=== PATIENT | female | born 1995 | race Caucasian/White ===

== ENCOUNTER 2018-12-23 17:14 | Emergency (ER) | payer SELFPAY ==
[2018-12-23] MEDS ORDERED: DIPH/PERTUSS(ACELL)/TETANUS VAC/PF 0.5 ML SYR (>=10YO) IM ONE (17:50)
[2018-12-23] MEDS ORDERED: AMOXICILLIN TR/POT CLAVULANATE 500-125 MG TAB PO ONE (17:50)
[2018-12-23] MEDS ORDERED: CEFEPIME 1 GM/D5W RTU 1 GM/50 ML RTUPB IV ONE (17:53)
--- NOTE | 2018-12-23 17:55 | ER Document Report ---
ED Medical Screen (RME) - General Chief Complaint: Dog Bite Stated Complaint: DOG BITE/LEFT PINKY FINGER Time Seen by Provider: 12/23/18 17:44 - HPI Notes: 12/23/18 17:53 Patient is a 23-year-old female no significant past medical history who presents complaining of dog bite with partial amputation of the left distal fifth finger prior to arrival. Patient states that she was trying to break up a fight between her 2 pit mix dogs when she was bit. Patient states that the shots are up-to-date for her animals, but she is unaware of her last tetanus. She still able to move her finger. She did bring the piece of the finger with her in a bag. Denies HOBBS, fever, neck pain, URI, CP, SOB, Abd pain, dysuria, back pain, or rash. I have treated and performed a rapid initial assessment of this patient. A comprehensive ED assessment and evaluation of the patient, analysis of test results and completion of medical decision making process will be conducted by additional ED providers. PHYSICAL EXAMINATION: GENERAL: Well-appearing, well-nourished and in no acute distress. A&Ox4. Answers questions appropriately. LUNGS: Breath sounds clear to auscultation bilaterally and equal. No wheezes rales or rhonchi. HEART: Regular rate and rhythm without murmurs, rubs, gallops. Left hand: + partial amputation noted to distal 5th finger. FROM. Strength 5+/5. ? piece of bone in the amputated piece that is in a bag. - Related Data Allergies/Adverse Reactions: No Known Allergies Allergy (Unverified 12/23/18 17:19) Past Medical History - Social History Frequency of alcohol use: Occasional Drug Abuse: None Renal/ Medical History: Denies: Hx Peritoneal Dialysis Physical Exam - Vital signs Vitals: Temp Pulse Resp BP Pulse Ox 97.3 F 93 20 114/62 93 12/23/18 17:25 12/23/18 17:25 12/23/18 17:25 12/23/18 17:25 12/23/18 17:25 Course - Vital Signs Vital signs: Temp Pulse Resp BP Pulse Ox 97.3 F 93 20 114/62 93 12/23/18 17:25 12/23/18 17:25 12/23/18 17:25 12/23/18 17:25 12/23/18 17:25
--- NOTE | 2018-12-23 18:19 | RADIOLOGY REPORT (SQ) ---
EXAM DESCRIPTION: HAND LEFT 3 VIEWS COMPLETED DATE/TIME: 12/23/2018 6:09 pm REASON FOR STUDY: left dog bite with amputation 5th digit distal COMPARISON: None. EXAM PARAMETERS: NUMBER OF VIEWS: Three views. TECHNIQUE: AP, lateral and oblique radiographic images acquired of the left hand. LIMITATIONS: None. FINDINGS: MINERALIZATION: Normal. BONES: 5th digit distal phalanx tuft avulsion fracture. No other fracture or dislocation. No worris ome bone lesions. JOINTS: No effusion. SOFT TISSUES: No radiopaque foreign body. OTHER: No other significant finding. IMPRESSION: 5th digit distal phalanx tuft avulsion fracture. TECHNICAL DOCUMENTATION: JOB ID: [id number] [place]-72 2010 [employer]- All Rights Reserved Reading location - IP/workstation name: [email or web address]
[2018-12-23] MEDS ORDERED: HYDROMORPHONE HCL INJ/PF 2 MG/ML AMPULE IV ONE (22:29)
[2018-12-23] MEDS ORDERED: HYDROCODONE/ACETAMINOPHEN 5-325 MG (6 TAB/ER DISP) PO PRN (23:29)
--- NOTE | 2018-12-23 23:44 | ER Document Report ---
ED General - General Chief Complaint: Dog Bite Stated Complaint: DOG BITE/LEFT PINKY FINGER Time Seen by Provider: 12/23/18 17:44 Primary Care Provider: RITO DIAMOND MD [ACTIVE PROVISIONAL STAFF] - 12/27/18 Notes: Patient is a pleasant 23-year-old female presents with complaint of dog bite to her left pinky finger. She says her dogs got a fight and the dog grabbed onto her left pinky finger and bit off the tip of her finger. Patient denies any other bites other than a small bite to her left forearm. She did receive a tetanus shot in triage. She also received antibiotics in triage. She has no other complaints at this time. TRAVEL OUTSIDE OF THE [place] IN LAST 30 DAYS: No - Related Data Allergies/Adverse Reactions: No Known Allergies Allergy (Unverified 12/23/18 17:19) Past Medical History - Social History Smoking Status: Current Every Day Smoker Frequency of alcohol use: Occasional Drug Abuse: None Family History: Reviewed & Not Pertinent Patient has suicidal ideation: No Patient has homicidal ideation: No Renal/ Medical History: Denies: Hx Peritoneal Dialysis Review of Systems - Review of Systems Notes: My Normal Review Basic REVIEW OF SYSTEMS: CONSTITUTIONAL : Denies fever, chills, or sweats. Denies recent illness. MUSCULOSKELETAL: Patient has dog bite to the tip of the left fifth digit. SKIN: Denies rash or skin lesions. NEUROLOGICAL: Denies sensory or motor loss. ALL OTHER SYSTEMS REVIEWED AND NEGATIVE. Physical Exam - Vital signs Vitals: Temp Pulse Resp BP Pulse Ox 97.3 F 93 20 114/62 93 12/23/18 17:25 12/23/18 17:25 12/23/18 17:25 12/23/18 17:25 12/23/18 17:25 - Notes Notes: General Appearance: Well nourished, alert, cooperative, no acute distress, moderate obvious discomfort. Vitals: reviewed, See vital signs table Eyes: PERRL, EOMI, Conjuctiva clear Extremities: strength 5/5 in all extremities, good pulses in all extremities, on exam patient is missing from approximately at the inferior portion of the nailbed forward. There is no nail. The entire distal portion of the finger is gone. Patient has just a small piece of the tuft of the distal phalanx visible and is surrounded by the soft tissue of the finger. No active bleeding at this time. Patient does have 2 small puncture wounds on the left forearm. No surrounding swelling or erythema. No active bleeding. No foreign body seen. Skin: warm, dry, appropriate color, no rash Neuro: speech clear, oriented x 3, normal affect, responds appropriately to questions. Course - Re-evaluation Re-evalutation: 12/24/18 07:07 I did thoroughly irrigate and clean the finger. I then placed a nonstick gauze and dressing on the finger. I did speak with Dr. Diamond, orthopedist. He recommends dressing changes but she can leave it to open air at home as long as she does not do anything dirty or is around a dirty environment. Recommend frequent washing with soap and water of the finger. He says to have the patient call his office and will see her in office this coming week for further evaluation. I will place patient on Augmentin. Patient is agreeable plan. I encouraged her return to ER immediately if she has spreading redness or swelling to the hand or forearm, fevers, bleeding, or if she has any further concerns. Patient agrees with plan and will be discharged home. Dictation of this chart was performed using voice recognition software; therefore, there may be some unintended grammatical errors. - Vital Signs Vital signs: Temp Pulse Resp BP Pulse Ox 99.2 F 65 20 108/65 100 12/23/18 23:52 12/23/18 23:52 12/23/18 17:25 12/23/18 23:52 12/23/18 23:52 Discharge - Discharge Clinical Impression: Dog bite Condition: Good Disposition: HOME, SELF-CARE Additional Instructions: Please change the dressing at least 2 times a day. Please keep a dressing on the finger if you are doing anything with your hands. If you will not be doing anything with your hands and you will be in a clean environment then you can leave the dressing off as long as you are frequently rinsing with mild soap and water. Do not scrub with the finger. Please take the antibiotics as prescribed. Please call Dr. Diamond's office in the morning to make an appointment for early this coming week for reevaluation. Have a very low threshold to return to the ER if you have any redness or swelling to the finger or any signs of infection. Please be aware that [facility] does have Tylenol (acetaminophen) in it. Please make sure you do not take more than 4000 mg of acetaminophen a day. Do not drive or care for children after you have taken this medication they will make you sleepy and sometimes impair judgment. Prescriptions: Amox Tr/Potassium Clavulanate [Augmentin 875-125 Tablet] 1 tab PO BID #14 tablet Hydrocodone/Acetaminophen [[facility] 5-325 mg Tablet] 1 tab PO Q4 PRN #10 tablet PRN Reason: For Breakthrough Pain Forms: Return to Work Referrals: RITO DIAMOND MD [ACTIVE PROVISIONAL STAFF] - 12/27/18
[2018-12-23 23:59] VITALS: BP 108/65
== END 2018-12-23 23:59 | disposition home or self-care (01) ==
LOC: EDBD 17:14 → ER 17:14
DX: S61.257A Open bite of left little finger without damage to nail, initial encounter (principal); S51.852A Open bite of left forearm, initial encounter; W54.0XXA Bitten by dog, initial encounter; F17.200 Nicotine dependence, unspecified, uncomplicated
CPT/HCPCS: 99283; 90471; 96375; 96365; 96366; 73130; 90715; J1170; J0692